=== PATIENT | female | born 1985 | race Caucasian/White ===

== ENCOUNTER → 2018-08-10 13:51 | Outpatient (CLI) | payer OTHER, MEDICAID, SELFPAY ==
--- NOTE | 2018-08-10 13:53 | DI.US.S_ITS ---
PROCEDURE: US OB >= 14 WEEKS FETUS INDICATIONS: ANATOMY OUTSIDE/PRIOR DATING DATA: Last menstrual period (LMP): Unknown. LMP-based estimated date of delivery (ARTEMIO): N./A.. First dating scan (date and location): 04/27/18. Estimated date of delivery (ARTEMIO) from first dating scan: 12/22/18. TECHNIQUE: Real-time scanning was performed of the fetus, with image documentation and biometric measurements. Endovaginal scanning: Transverse COMPARISON: [facility] Ultrasound, US, US OB < 14 WEEKS + OB TRANSVAG, 04/27/2018, 8:40. FINDINGS: General: A single living intrauterine gestation is present. Presentation: Transverse. Placenta: Placental position is posterior, without previa. Amniotic fluid index: 12.3 cm, normal range is 5-24 cm. heart rate: 144 beats per minute. Maternal cervical canal: 3.6 cm long. Normal lower limit is 2.5 cm. biometrics: Biparietal diameter: 20 weeks 6 days Head circumference: 20 weeks 6 days Abdominal circumference: 22 weeks 2 days Femur length: 20 weeks 5 days Estimated gestational age from initial scan: 20 weeks 6 days Composite gestational age from present scan: 21 weeks 2 days Estimated weight and percentile: 45 g; 77th percentile Measurement variability for biometric dating: +/- 7 days from 14 weeks to 15 weeks 6 days gestation, +/- 10 days from 16 weeks to 21 weeks 6 days gestation, +/- 2 weeks from 22 weeks to 27 weeks 6 days gestation, +/- 3 weeks for 28 weeks gestation or later. weight reference: 4500 g or EFW >90/95% is considered macrosomia or large for gestational age. EFW <10% is small for gestational age. EFW 5% or less is considered intra-uterine growth restriction. Anatomic survey: Neuro: Ventricles are non-dilated at less than 10 mm. Cisterna magna is normal at 3-11 mm. Cerebellum is normal in size and morphology. Nuchal skin fold: Normal at less than 6 mm between 14-21 weeks gestational age. Face: Nose and lips, facial profile are normal. Spine: No evidence for spina bifida. Heart: Normal four-chamber heart and RVOT. LVOT not well-seen. Diaphragm: Diaphragm is intact. Stomach: Left-sided stomach is present. Kidneys: No hydronephrosis. Normal is less than 5 mm in 2nd trimester, less than 7 mm in 3rd trimester. Cord: 3-vessel cord has orthotopic insertion. Bladder: Normal in size. Extremities: All 4 extremities identified. IMPRESSION: 1. Single living IUP redemonstrated and interval growth is normal. 2. Left ventricular outflow tract not well seen; otherwise normal anatomy. Dictated by: Deven Urrutia [facility] Interpreted: Sunday Barker MD on 08/10/2018 at 15:42 Approved by: Sunday Barker M.D. on 08/10/2018 at 16:35
== END ==
PROVIDERS: PCP Family Medicine; Visit Provider Family Medicine
DX: Z34.82 Encounter for supervision of other normal pregnancy, second trimester (principal); Z3A.21 21 weeks gestation of pregnancy
CPT/HCPCS: 76811

== ENCOUNTER → 2018-09-22 16:20 | Outpatient (CLI) | payer OTHER, MEDICAID, SELFPAY ==
[2018-09-22 18:00] LABS: Hematocrit 35.5 % (36-46); Hemoglobin 11.5 g/dL (12.0-16.0)
== END ==
PROVIDERS: PCP Family Medicine; Visit Provider Family Medicine
DX: Z34.82 Encounter for supervision of other normal pregnancy, second trimester (principal); Z3A.27 27 weeks gestation of pregnancy
CPT/HCPCS: 36415; 85014; 85018

== ENCOUNTER 2018-11-10 15:01 | Observation (INO) | payer OTHER, MEDICAID, SELFPAY ==
--- NOTE | 2018-11-10 | DI.US.S_ITS ---
PROCEDURE: US OB BIOPHYSICAL PROFILE INDICATIONS: LABOR, CERVICAL LENGTH PLEASE OUTSIDE/PRIOR DATING DATA: Last menstrual period (LMP): Unknown. LMP-based estimated date of delivery (ARTEMIO): Not available. First dating scan (date and location): 04/27/18, [facility]. Estimated date of delivery (ARTEMIO) from first dating scan: 12/22/18. TECHNIQUE: Real-time scanning was performed of the fetus, with image documentation and biometric measurements. Biophysical profile was also obtained. COMPARISON: None. FINDINGS: General: A single living intrauterine gestation is present. Presentation: Vertex. Placenta: Placental position is posterior, without previa. Amniotic fluid index: 16.1 cm, normal range is 5-24 cm. heart rate: 141 beats per minute. Maternal cervical canal: 3.0 cm long. Biophysical profile: Tone: 2 points. Movement: 2 points. Respiration: Zero points. Largest pocket of fluid: 2 points. IMPRESSION: 1. Cervical length of 3.0 cm. 2. 6/8 biophysical profile. No respiration visualized during the 30 minute window of the exam. Dictated by: Claire Melissa M.D. on 11/10/2018 at 18:20 Approved by: Claire Melissa M.D. on 11/10/2018 at 18:22
[2018-11-10] MEDS: LACTATED RINGERS 1,000 ML 1000 ML IV (16:25)
[2018-11-10] MEDS: NIFEdipine 10 MG CAPSULE PO ×4 (16:27→17:40)
--- NOTE | 2018-11-10 16:45 | P.HP_ITS ---
History of Present Illness Date Patient Seen: 11/10/18 Time Patient Seen: 16:36 Chief complaint: Potential labor Narrative: 32-year-old female G3 para 2 with an estimated due date of 12/22 2018 consistent with early ultrasound and 20 week ultrasound. She has approximately 34 weeks gestational age . She presents to the labor and delivery floor saying she is having intermittent crying trach shins pelvic pain and discomfort. It has been there on morning and it has gradually gotten worse. She has not had fevers or chills. No leaking of fluid no bleeding or spotting no vaginal discharge. She says she feels like she has a bladder infection. She has burning and frequency. The her previous pregnancies were both born vaginally 1 at 37 weeks and the other 1 at 40 weeks gestational age. They were uncomplicated. Initial OB care provided the [facility] and transferred to [facility] at 23 weeks. labs O positive blood type and antibody screen negative VDRL negative hepatitis-B surface antigen negative HIV negative GC chlamydia negative GBS positive in April 2018 rubella immune. Diabetes screen within normal limits. Twenty week ultrasound was normal at anatomically other than cardiac outflow tracts were not well seen. 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 History of LEEP in 2012 with a normal vaginal delivery afterwards. On my exam in the birthing center patient is uncomfortable and very anxious. Exam Narrative Exam Narrative: . General: Alert no apparent distress. Affect is appropriate. Oleg it is uncomfortable. HEENT: Neck is supple without lymphadenopathy pupils equal round and reactive. Cardio: S1-S2 regular rate and rhythm. Respiratory: Lungs clear to auscultation. Abdomen: Gravid. Extremities: Normal deep tendon reflexes trace edema. [place]: Oleg irregularly mild to moderate heart tones: Good heart tones 130s to 140s reactive strip. Assessment & Plan Assessment & Plan narrative: G3 para 2 at 36 weeks gestational age and labor. Will start an IV. Check a urine due to a GBS screen. Will do CBC and electrolyte panel. Will start her on an IV fluid bolus of 100 mL of normal saline and start nifedipine per protocol. Will obtain an ultrasound for biophysical profile and cervical length. Hopefully we can get the contractions to slow down and or stop. If not then we would anticipate transferring patient to a tertiary care center where they could potentially deliver baby at 34 weeks. No clear obvious source of infection although urinalysis is pending. At this point will hold off on antibiotics. As well as steroids in less we talked to transferring facility and they would require those.
[2018-11-10 16:57] LABS: Appearance Urine UA CLEAR; Bilirubin Urine UA NEGATIVE (NEGATIVE); Color Urine UA YELLOW; Glucose Urine UA NEGATIVE (Negative); Ketones Urine UA NEGATIVE (NEGATIVE); Leukocyte Esterase Urine UA TRACE (NEGATIVE); Nitrite Urine UA NEGATIVE (Negative); Occult Blood Urine UA NEGATIVE (Negative); Protein Urine UA NEGATIVE (Negative); Specific Gravity Urine UA 1.015 (1.000-1.035); Urobilinogen Urine UA 0.2 E.U./dL (0.2)
[2018-11-10 17:18] LABS: RBC Urine 1-5/HPF (0-5/HPF); Squamous Epithelial Cell Urine 10-30 /HPF (0-5/HPF); WBC Urine 5-10/HPF (0-5/HPF)
[2018-11-10 17:19] LABS: Bacteria Urine Few (2-10); Culture Indicated Urine Cult Not Indicated; Transitional Epi Cells Urine 0-1/HPF (0-5/HPF)
[2018-11-10 17:52] LABS: Add Manual Diff / Slide Review NO; Basophils Absolute Auto 0 /uL (0-100); Basophils Percent Auto 0.1 % (0-2); Eosinophils Absolute Auto 100 /uL (0-450); Eosinophils Percent Auto 0.7 % (2-4); Hematocrit 33.7 % (36-46); Hemoglobin 10.7 g/dL (12.0-16.0); Lymphocytes Absolute Auto 2000 /uL (1100-4500); Lymphocytes Percent Auto 17.9 % (25-40); Mean Corpuscular HGB Conc 31.8 % (30-36); Mean Corpuscular Hemoglobin 26.4 PG (26-34); Mean Corpuscular Volume 83.1 fL (80-100); Monocytes Absolute Auto 800 /uL (0-900); Monocytes Percent Auto 7.3 % (3-14); Neutrophils Absolute Auto 8300 /uL (1500-7000); Platelet Count 220 X10^3/uL (150-400); Red Blood Cell Count 4.06 X10^6/uL (4.0-5.2); Red Cell Distribution Width 13.3 % (11.6-14.8); White Blood Cell Count 11.3 X10^3/uL (4.5-11.0)
[2018-11-10] MEDS: NITROFURANTOIN ER 100 MG CAPSULE PO (17:57)
[2018-11-10 18:04] LABS: Carbon Dioxide 22 mmol/L (22-32); Chloride 105 mmol/L (98-107); HEMOLYSIS < 15 (0-50); Potassium 3.5 mmol/L (3.4-5.1); Sodium 134 mmol/L (137-145)
== END 2018-11-10 19:25 | disposition home or self-care (01) ==
PROVIDERS: Admitting Provider Family Medicine; PCP Family Medicine; Visit Provider Family Medicine
DX: O47.03 False labor before 37 completed weeks of gestation, third trimester (principal); Z3A.35 35 weeks gestation of pregnancy
CPT/HCPCS: 59025; 76817; 76819; 80051; 81003; 81015; 85025; 87081; 87147; 96360; G0378; G0379

== ENCOUNTER 2018-11-13 13:45 | Outpatient (CLI) | payer OTHER, MEDICAID, SELFPAY ==
--- NOTE | 2018-11-13 14:55 | PM.OBTRLD ---
Visit Information Visit Information Date of evaluation: 11/13/18 Primary OB Provider: Hannah Mejia Reason for Evaluation: Yes pre-term labor Exam Vital Signs (past 8 hours): Blood pressure 109/62, pulse of 82 Evaluation Evaluation Baseline heart rate: 120 Variability: Moderate (11-25) monitor accelerations: Present monitor decelerations: Absent Contraction Frequency (minutes): 8 Uterine Contraction Intensity: Mild Category of Tracing: I Cervical dilation (cm): 1 Cervical effacement (%): 0 station: -3 Diagnosis, Plan/Disposition Final Diagnosis (1) Premature uterine contractions: Current Visit: Yes Status: Acute (2) 34 weeks gestation of : Current Visit: Yes Status: Acute Plan/Disposition Plan: Patient with mild contractions but no change in her cervix. She is pushing fluids and trying to rest. Patient is to keep her routine OB appointment OB Disposition: home
== END 2018-11-13 15:10 | disposition home or self-care (01) ==
LOC: LABOR 15:04 → OB 11-18 13:59
PROVIDERS: PCP Family Medicine; Visit Provider Specialist
DX: O47.9 False labor, unspecified (principal); Z3A.34 34 weeks gestation of pregnancy
CPT/HCPCS: 59025; G0378; G0379

== ENCOUNTER 2018-12-03 16:27 | Outpatient (CLI) | payer OTHER, MEDICAID, SELFPAY | END 2018-12-03 17:40 | disposition home or self-care (01) | LOC: LABOR 16:47 → OB 12-07 14:22 | PROVIDERS: PCP Family Medicine; Visit Provider Family Medicine | DX: O60.03 Preterm labor without delivery, third trimester (principal); Z3A.38 38 weeks gestation of pregnancy | CPT/HCPCS: 59025; 84112; G0378; G0379 ==